=== PATIENT | female | born 1965 | race Caucasian/White ===

== ENCOUNTER 2022-01-27 13:18 | Emergency (ER) | payer BC | END 2022-01-27 16:00 | disposition left against medical advice (07) | LOC: ER 13:19 | DX: L08.9 Local infection of the skin and subcutaneous tissue, unspecified (principal); Z53.21 Procedure and treatment not carried out due to patient leaving prior to being seen by health care provider ==

== ENCOUNTER 2022-01-28 09:15 | Emergency (ER) | payer BC ==
[~2022-01-28] VITALS: Ht 158.8 cm; Wt 75.0 kg
[2022-01-28 09:18] VITALS: BP 123/80
[2022-01-28] MEDS ORDERED: bacitracin 15gm ointment TP ONE (12:55)
== END 2022-01-28 13:06 | disposition home or self-care (01) ==
LOC: ER 09:16
DX: L02.216 Cutaneous abscess of umbilicus (principal); Z72.89 Other problems related to lifestyle
CPT/HCPCS: 10060; 99282; A6449

== ENCOUNTER 2024-03-11 07:07 | Emergency (ER) | payer BC ==
[~2024-03-11] VITALS: Ht 157.5 cm; Wt 78.8 kg
[2024-03-11 07:57] LABS: BASOPHILS % (AUTO) 0.6 % (0-1); EOSINOPHILS % (AUTO) 0.4 % (0-6); HEMATOCRIT 44.4 % (35.0-45.0); HEMOGLOBIN 15.1 g/dl (12.0-16.0); LYMPHOCYTES # (AUTO) 1.5 X10'3 (1.1-4.8); LYMPHOCYTES % (AUTO) 20.7 % (21-51); MEAN CORPUSCULAR HEMOGLOBIN 30.3 PG (27.0-31.0); MEAN CORPUSCULAR HGB CONC 33.9 g/dL (33.0-36.5); MEAN CORPUSCULAR VOLUME 89.5 FL (78-98); MEAN PLATELET VOLUME 7.9 FL (7.4-10.4); MONOCYTES # (AUTO) 0.2 X10'3 (0-0.9); MONOCYTES % (AUTO) 3.3 % (2-12); NEUTROPHILS # (AUTO) 5.5 X10'3 (1.8-7.7); PLATELET COUNT 276 X10'3 (140-440); RED BLOOD COUNT 4.96 X10'6 (4.20-5.60); RED CELL DISTRIBUTION WIDTH 13.7 % (11.5-14.5); WHITE BLOOD COUNT 7.3 X10'3 (4.5-11.0)
[2024-03-11 08:15] LABS: ALANINE AMINOTRANSFERASE 43 U/L (12-78); ALBUMIN 3.9 G/DL (3.4-5.0); ALBUMIN/GLOBULIN RATIO 0.8 (1.1-1.5); ALKALINE PHOSPHATASE 123 IU/L (46-116); ANION GAP 10 (8-16); ASPARTATE AMINO TRANSFERASE 20 U/L (10-37); BILIRUBIN,TOTAL 0.4 MG/DL (0.1-1.0); BLOOD UREA NITROGEN 10 MG/DL (7-18); BUN/CREATININE RATIO 13.5 (10.0-20.0); CALCIUM 9.1 MG/DL (8.5-10.1); CHLORIDE 100 MMOL/L (99-107); CREATININE 0.74 MG/DL (0.40-0.90); GLUCOSE 129 MG/DL (70-104); POTASSIUM 3.6 MMOL/L (3.5-5.1); SODIUM 136 MMOL/L (135-145); TOTAL CARBON DIOXIDE 25.7 MMOL/L (24-32); TOTAL PROTEIN 8.6 G/DL (6.4-8.2); eCRCL 66 ML/MIN; eGFR 81 ML/MIN
[2024-03-11 08:24] LABS: LIPASE 42 U/L (16-77); PRO BRAIN NATRIURETIC PEPTIDE 69 PG/ML (0-125)
[2024-03-11] MEDS: normal saline 1000ML IV soln IVB ONE (08:35)
[2024-03-11] MEDS: ondansetron/PF 4mg/2ml inj IV ONE (08:36)
[2024-03-11] MEDS: ketorolac trometh 15mg/ml vial 15 MG/ML ML IV ONE (08:36)
[2024-03-11] MEDS: pantoprazole 40 MG vial IV ONE (08:36)
[2024-03-11] MEDS: morphine 4 MG/ML inj SYRINge IV ONE (08:44)
[2024-03-11 09:36] VITALS: BP 158/93; PULSE 53; RESP 16; TEMP 97.4; O2SAT 98
== END 2024-03-11 09:48 | disposition home or self-care (01) ==
LOC: ER 07:07
DX: K80.20 Calculus of gallbladder without cholecystitis without obstruction (principal); R10.31 Right lower quadrant pain; K21.9 Gastro-esophageal reflux disease without esophagitis
CPT/HCPCS: 36415; 71045; 76700; 80053; 83690; 83880; 84484; 85025; 93005; 96361; 96374; 96375; 99285; J1885; J2405; J2470; J7030